=== PATIENT | female | born 1965 | race Caucasian/White ===

== ENCOUNTER 2019-01-08 09:59 | Outpatient (CLI) | payer OTHER ==
[~2019-01-08] VITALS: Ht 172.8 cm; Wt 97.4 kg
[2019-01-08 10:45] LABS: HEMATOCRIT 42.2 % (37.0-47.0); HEMOGLOBIN 13.8 g/dl (12.5-16.0); MEAN CELL VOLUME 88 fl (80.0-100.0); MEAN CORPUSCULAR HEMOGLOBIN 29 pg (27.0-31.0); MEAN CORPUSCULAR HGB CONC 33 g/dl (33.0-37.0); MEAN PLATELET VOLUME 9.7 fl (7.4-10.4); PLATELET COUNT 300 K/mm3 (130-400); RED BLOOD COUNT 4.81 M/mm3 (4.10-5.30); REDCELL DISTRIBUTION WIDTH-CV 14.3 % (11.5-14.5)
[2019-01-08 10:50] LABS: PROTHROMBIN TIME 11.5 SECONDS (9.7-12.8)
[2019-01-08 10:55] LABS: CREATININE, serum 0.54 (0.52-1.25)
[2019-01-08] MEDS ORDERED: LUTEIN20 M1 PO (11:11)
[2019-01-08] MEDS ORDERED: LITHIUM 30300 MG/CAP PO (11:11)
[2019-01-08 11:28] VITALS: BP 141/76; PULSE 61; TEMP 98.4
[2019-01-08 12:35] VITALS: BP 132/76; PULSE 60
--- NOTE | 2019-01-08 12:35 | NUR ---
Report from Jose Landaverde RN-YOLANDA complete, pt ho well. Pt resting well in bed.
[2019-01-08 12:50] VITALS: BP 130/65; PULSE 63
[2019-01-08 13:05] VITALS: BP 111/54; PULSE 62
[2019-01-08 13:20] VITALS: BP 104/66; PULSE 60
[2019-01-08 13:35] VITALS: BP 144/72; PULSE 62; TEMP 97.9
--- NOTE | 2019-01-08 13:45 | NUR ---
Pt has ambulated and ho PO intake s n/v. PIV removed with catheter intact.
--- NOTE | 2019-01-08 14:05 | NUR ---
Pt discharged per w/c by nurse with .
== END 2019-01-08 14:26 | disposition home or self-care (01) ==
LOC: COL.RAD 09:59
PROVIDERS: Internal Medicine Cardiovascular Disease
DX: I51.7 Cardiomegaly (principal); I34.0 Nonrheumatic mitral (valve) insufficiency
CPT/HCPCS: J2704

== ENCOUNTER → 2019-03-18 | Outpatient (CLI) | payer OTHER ==
[~2019-03-18] MED LIST: LITHIUM 30300 MG/CAP PO; LUTEIN20 M1 PO
== END ==
LOC: COL.PUL 13:00
DX: I34.1 Nonrheumatic mitral (valve) prolapse (principal)

== ENCOUNTER 2019-03-19 07:04 | Day surgery (SDC) | payer OTHER ==
[~2019-03-19] VITALS: Ht 172.8 cm; Wt 98.5 kg
[2019-03-19] VITALS (9 sets, daily range): BP systolic 113–144; BP diastolic 61–96; PULSE 53–64; TEMP 98.4
[2019-03-19 07:36] LABS: HEMATOCRIT 43.9 % (37.0-47.0); HEMOGLOBIN 14.4 g/dl (12.5-16.0); MEAN CELL VOLUME 90 fl (80.0-100.0); MEAN CORPUSCULAR HEMOGLOBIN 30 pg (27.0-31.0); MEAN CORPUSCULAR HGB CONC 33 g/dl (33.0-37.0); MEAN PLATELET VOLUME 9.9 fl (7.4-10.4); PLATELET COUNT 300 K/mm3 (130-400); RED BLOOD COUNT 4.86 M/mm3 (4.10-5.30); REDCELL DISTRIBUTION WIDTH-CV 13.8 % (11.5-14.5)
[2019-03-19 07:37] LABS: INR 0.9 (0.8-3.0); PROTHROMBIN TIME 10.9 SECONDS (9.7-12.8)
[2019-03-19 07:48] LABS: CREATININE, serum 0.63 (0.52-1.25); POTASSIUM 4.4 mmol/L (3.4-5.0)
--- NOTE | 2019-03-19 08:43 | NUR ---
SEE MERGE REPORT FOR MEDICATION ADMINISTRATION TIMES WELL INTRA/POST SEDATION ASSESSMENTS.
--- NOTE | 2019-03-19 09:46 | NUR ---
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 Right groin site dressing CD&I soft to palpation. Right wrist Tband with 12 cc air in band CD&I, good pulses and cap refill < 3 secs. VSS. Rita bedside
--- NOTE | 2019-03-19 12:14 | NUR ---
INT discontinued intact. Right Tband dflated of 12 cc air over 20 minutes. Pressure dressing applied to right wrist.
--- NOTE | 2019-03-19 12:20 | NUR ---
Discharge instructions given. Transferred to private car by paula
== END 2019-03-19 12:30 | disposition home or self-care (01) ==
LOC: COL.CAR 07:04
PROVIDERS: Internal Medicine Cardiovascular Disease
DX: I34.0 Nonrheumatic mitral (valve) insufficiency (principal); I27.20 Pulmonary hypertension, unspecified; I34.1 Nonrheumatic mitral (valve) prolapse; F17.210 Nicotine dependence, cigarettes, uncomplicated; Z88.0 Allergy status to penicillin; Z91.040 Latex allergy status
CPT/HCPCS: C1769; C1894; J1644; J2250; J3010; Q9967

== ENCOUNTER 2020-06-14 12:21 | Outpatient (CLI) | payer OTHER ==
[~2020-06-14] VITALS: Ht 173 cm; Wt 102.7 kg
[~2020-06-14 12:21] MED LIST changes: +ASPIRIN E.C. 8181 MG PO; +LASIX 20MG TABL20 MG PO; +LUTEIN 15 MG-0.1 SGL PO; -LUTEIN20 M1 PO
[2020-06-14 12:53] VITALS: BP 147/90; PULSE 66; TEMP 98.7
[2020-06-14 13:18] LABS: HEMOGLOBIN 14.3 g/dl (12.5-16.0); MEAN CELL VOLUME 92 fl (80.0-100.0); MEAN CORPUSCULAR HEMOGLOBIN 30 pg (27.0-31.0); MEAN CORPUSCULAR HGB CONC 33 g/dl (33.0-37.0); MEAN PLATELET VOLUME 9.7 fl (7.4-10.4); PLATELET COUNT 336 K/mm3 (130-400); RED BLOOD COUNT 4.81 M/mm3 (4.10-5.30); REDCELL DISTRIBUTION WIDTH-CV 13.5 % (11.5-14.5)
[2020-06-14 13:20] LABS: INR 0.9 (0.8-3.0); PROTHROMBIN TIME 10.4 SECONDS (9.7-12.8)
[2020-06-14 13:23] LABS: CREATININE, serum 0.7 (0.52-1.25); POTASSIUM 4.1 mmol/L (3.4-5.0)
[2020-06-14 15:00] VITALS: BP 136/85; PULSE 67
[2020-06-14 15:15] VITALS: BP 116/71; PULSE 68
[2020-06-14 15:30] VITALS: BP 161/87; PULSE 65
[2020-06-14 15:45] VITALS: BP 152/99; PULSE 64
[2020-06-14 16:30] VITALS: BP 153/90; PULSE 66
--- NOTE | 2020-06-14 16:39 | NUR ---
DC instructions reviewed with pt, who expresses understanding. Pt is ambulatory about room with steady gait. Pt has tolerated PO without difficulty. IV DC'd with catheter intact, and bleeding controlled at site. Pt is assisted out by wheelchair to 's car. Dr Stephens spoke with pt by phone to discuss DC instructions and plan for follow up.
== END 2020-06-14 16:49 | disposition home or self-care (01) ==
LOC: COL.RAD 12:21
PROVIDERS: Internal Medicine Cardiovascular Disease
DX: I05.0 Rheumatic mitral stenosis (principal)
CPT/HCPCS: J2704

== ENCOUNTER → 2023-09-11 | Outpatient (CLI) | payer OTHER ==
[~2023-09-11] VITALS: Ht 172.7 cm; Wt 96.9 kg
[2023-09-11 14:30] VITALS: BP 174/81; PULSE 68; TEMP 98
== END ==
LOC: COL.RAD 14:06
DX: E04.2 Nontoxic multinodular goiter (principal)